=== PATIENT | male | born 1980 | race American Indian/Alaskan Native ===

== ENCOUNTER 2019-05-23 11:26 | Observation (INO) | payer OTHER ==
[2019-05-22 09:57] LABS: Basophils # (Auto) 0.1 K/mm3 (0.0-0.1); Basophils % (Auto) 2.4 % (0.0-1.8); Eosinophils # (Auto) 0.1 K/mm3 (0.0-0.4); Hematocrit 44.6 % (35.5-45.6); Hemoglobin 15.3 gm/dl (11.8-15.2); Lymphocytes # (Auto) 1.1 K/mm3 (1.2-5.4); Lymphocytes % (Auto) 30.5 % (13.4-35.0); Mean Corpuscular HGB Conc 34 % (32-34); Mean Corpuscular Volume 96 fl (84-94); Monocytes # (Auto) 0.2 K/mm3 (0.0-0.8); Monocytes % (Auto) 6.3 % (0.0-7.3); Platelet Count 217 K/mm3 (140-440); Red Blood Count 4.66 M/mm3 (3.65-5.03); Red Cell Distribution Width 12.8 % (13.2-15.2)
--- NOTE | 2019-05-22 10:13 | Anesthesia Consultation ---
Anesthesia Consult and Med Hx Date of service: 05/22/19 - Airway Anesthetic Teeth Evaluation: Good ROM Head & Neck: Adequate Mental/Hyoid Distance: Adequate Mallampati Class: Class II Intubation Access Assessment: Good - Pulmonary Exam CTA: Yes - Cardiac Exam Cardiac Exam: RRR - Pre-Operative Health Status ASA Pre-Surgery Classification: ASA2 Proposed Anesthetic Plan: General (ex smoker quit a year ago ) - Pulmonary Hx Smoking: Yes (STOPPED X 1 YR) Hx Sleep Apnea: No (COREY PRE SCREEN LOW RISK) - Cardiovascular System Hx Hypertension: No - Other Systems Hx Cancer: No
[2019-05-22 10:18] LABS: Alanine Aminotransferase 17 units/L (7-56); Albumin 4.7 g/dL (3.9-5); BUN/Creatinine Ratio 11; Blood Urea Nitrogen 13 mg/dL (9-20); Calcium 9.3 mg/dL (8.4-10.2); Hemolysis Index 10
[~2019-05-23 11:26] MED LIST: GENTAMICIN/NS 80 MG/100 ML 100 ML IV SCH; MIDAZOLAM 2 MG/2 ML INJ IV NR; VANCOMYCIN/NS 1 GM/250 ML 1 GM/250 ML BAG IV SCH
[2019-05-23] MEDS: LACTATED RINGERS 1,000 ML IV SCH (11:55)
[2019-05-23] MEDS ORDERED: fentaNYL 100 MCG/2 ML INJ IV PRN (12:12)
[2019-05-23] MEDS ORDERED: ONDANSETRON 4 MG/2 ML INJ IV PRN ×2 (12:12→14:57)
--- NOTE | 2019-05-23 12:16 | Anesthesia Day of Surgery ---
Anesthesia Day of Surgery - Day of Surgery Patient Examined: Yes Patient H&P Reviewed: Yes Patient is NPO: Yes
[2019-05-23] MEDS ORDERED: MAGNESIUM OXIDE 400 MG TAB PO NR (12:17)
[2019-05-23] MEDS ORDERED: ACETAMINOPHEN 500 MG TAB PO ONE (12:17)
[2019-05-23] MEDS ORDERED: BUPIVACAINE/PF (0.5%) 5 MG/1 ML 30 ML VIAL INFILTRATI ONE (12:36)
[2019-05-23] MEDS ORDERED: SODIUM CHLORIDE 0.9% 250ML 250 ML ONE (12:37)
[2019-05-23] MEDS ORDERED: SODIUM CHLORIDE P/F VIAL 10 ML 10 ML ONE (12:37)
[2019-05-23] MEDS ORDERED: GENTAMICIN 40 MG/ML VIAL 2 ML ONE (12:37)
[2019-05-23] MEDS ORDERED: rifAMPin 600 MG VIAL ONE (12:37)
[2019-05-23] MEDS ORDERED: NEOMY 40 MG/POLYMYXIN B 200,000 UNITS/ML (GU) AMPULE IR ONE ×2 (12:46→14:25)
[2019-05-23] MEDS ORDERED: GABAPENTIN 300 MG CAP PO NR (13:00)
[2019-05-23] MEDS ORDERED: HYDROmorphone 1 MG/1 ML INJ ONE (13:31)
[2019-05-23] MEDS ORDERED: PROPOFOL 200 MG/20 ML VIAL IV ONE (13:31)
[2019-05-23] MEDS ORDERED: LIDOCAINE MPF (2%) 20 MG/1 ML VIAL 5 ML ONE (13:31)
[2019-05-23] MEDS ORDERED: rifAMPin 600 MG VIAL IV ONE (14:22)
[2019-05-23] MEDS ORDERED: GENTAMICIN 40 MG/ML VIAL 2 ML IV ONE (14:22)
[2019-05-23] MEDS ORDERED: SODIUM CHLORIDE 0.9% IRR 1,500 ML BOTTLE IR ONE (14:25)
[2019-05-23] MEDS ORDERED: SODIUM CHLORIDE 0.9% 250 ML IVPB IV ONE (14:25)
[2019-05-23] MEDS ORDERED: NALOXONE 0.4 MG/1 ML INJ IV PRN (14:57)
--- NOTE | 2019-05-23 14:57 | Short Stay Summary ---
Short Stay Documentation Date of service: 05/23/19 - History H&P: obtained from office - Allergies and Medications Current Medications: Allergies Sulfa (Sulfonamide Antibiotics) Adverse Reaction (Verified 05/23/19 12:52) Unknown PT HAS G6PD DEFICIENCY - CANNOT TAKE SULFA DRUGS Home Medications Medication Instructions Recorded Confirmed Last Taken Type No Known Home Medications [No 05/15/19 05/15/19 Unknown History Reported Home Medications] Active Medications Fentanyl (Sublimaze) 50 mcg IV Q5MIN PRN PRN Reason: Pain , Severe (7-10) Stop: 05/23/19 23:59 Gabapentin (Gabapentin) 600 mg PO PREOP NR Stop: 05/24/19 23:59 Last Admin: 05/23/19 12:43 Dose: 600 mg Documented by: Gentamicin Sulfate/Sodium Chloride (Gentamicin/Ns 80 Mg/100 Ml) 100 mls @ 200 mls/hr IV PREOP IRA Stop: 05/23/19 23:00 Vancomycin HCl (Vancomycin/Ns 1 Gm/250 Ml) 1 gm in 250 mls @ 166.667 mls/hr IV PREOP IRA; Protocol Stop: 05/23/19 23:00 Last Admin: 05/23/19 12:45 Dose: 166.667 mls/hr Documented by: Lactated Ringer's (Lactated Ringers) 1,000 mls @ 100 mls/hr IV DIRECT IRA Last Admin: 05/23/19 11:55 Dose: 100 mls/hr Documented by: Magnesium Oxide (Mag-Ox) 400 mg PO PREOP NR Stop: 05/23/19 23:59 Last Admin: 05/23/19 12:43 Dose: 400 mg Documented by: Midazolam HCl (Versed) 2 mg IV PREOP NR Stop: 05/23/19 23:59 Last Admin: 05/23/19 11:58 Dose: 2 mg Documented by: Ondansetron HCl (Zofran) 4 mg IV ONCE PRN PRN Reason: Nausea And Vomiting - Brief post op/procedure progress note Date of procedure: 05/23/19 Pre-op diagnosis: impotence Post-op diagnosis: same Procedure: ipp (22cm Titan + 2cm RTE) Anesthesia: GETA Surgeon: ONEIDA CABRERA Estimated blood loss: minimal Pathology: list (scrotal skin) Specimen disposition: to lab Condition: stable - Hospital course Hospital course: pt has abx & pain pills - Disposition Condition at discharge: Stable Disposition: DC-01 TO HOME OR SELFCARE Short Stay Discharge Plan Follow up with: TL SEO MD [Primary Care Provider] - 7 Days
[2019-05-23] MEDS ORDERED: SODIUM CHLORIDE 0.45% 1000 ML 1,000 ML IV SCH (15:00)
[2019-05-23] MEDS ORDERED: LACTATED RINGERS 1,000 ML ONE ×2 (15:05→16:20)
[2019-05-23] MEDS ORDERED: KETOROLAC 30 MG/1 ML INJ ONE (15:06)
[2019-05-23] MEDS ORDERED: MEPERIDINE 25 MG/1 ML INJ ONE (15:18)
--- NOTE | 2019-05-23 15:23 | Operative Report ---
PREOPERATIVE DIAGNOSIS: Erectile dysfunction. POSTOPERATIVE DIAGNOSIS: Erectile dysfunction. PROCEDURE: Insertion of inflatable penile prosthesis, intracorporal penile injection of pharmacologic agent, scrotoplasty. SURGEON: Abelardo Maurice MD ROLL PICKER: Dian Payan. ANESTHESIA: General. ESTIMATED BLOOD LOSS: Minimal. FLUIDS: Crystalloid. COMPLICATIONS: No complications. INDICATIONS: This is a 39-year-old gentleman with history of erectile dysfunction secondary to his spine surgery in 2017. He actually has had worsening erectile dysfunction since 2016. Conservative therapy was not working anymore. We discussed options. He wants to proceed with surgical intervention. Risks, benefits, and complications were explained. DESCRIPTION OF PROCEDURE: The patient was taken to the operative suite, placed in a supine position. After adequate general anesthesia, he was prepped and draped in a sterile fashion. Dian Payan, who was the nursing surgical services director, was present at the bedside throughout the procedure to assist with surgical dissection. Simpson catheter was placed on the operative field, 60 mL of 0.25% Marcaine was injected into the shaft. No curvature or plaque could be appreciated. Trans-scrotal incision was made. Sharp dissection was taken down to the corporal bodies, 2-0 Vicryl stay sutures were placed. Metal Mayer retractor was used for exposure. Corporotomies were made bilaterally, gentle dilation was performed. Measurements revealed a total of 24 cm; therefore, a 22 cm Coloplast Titan inflatable penile prosthesis was placed with 2 cm rear tip extenders. A 125 mL reservoir was prepped and placed in the retropubic space via the right external ring, 125 mL saline was placed in the reservoir. The cylinders were prepped and placed in the corporal bodies with the aid of a Dominic needle. Adequate seating could be appreciated. Corporotomies were closed with 2-0 Vicryl in a running fashion. The cylinders were inflated, with an excellent cosmetic appearance. Total length of 16 cm, stretch length from the pubic symphysis to the tip of the penis. Copious irrigation was performed. Adequate hemostasis achieved. Using a quick click connection system, the reservoir was connected to the pump. The pump was placed in the dependent portion of the scrotum, secured with a 2-0 Vicryl pursestring suture. Dartos layer was closed with 2-0 Vicryl in a running fashion. Redundant scrotal skin was excised. Skin was then closed with 2-0 Vicryl in interrupted fashion. Xeroform gauze was placed as well as a mummy wrap. The patient tolerated the procedure well and was extubated and taken to recovery room. He will be observed overnight and go home tomorrow. JOB# [id number] [facility]
[2019-05-23] MEDS ORDERED: fentaNYL 100 MCG/2 ML INJ ONE (15:48)
--- NOTE | 2019-05-23 15:51 | Post Anesthesia Evaluation ---
- Post Anesthesia Evaluation Patient Participated: Yes Airway Patent: Yes Stable Respiratory Function: Yes Nausea/Vomiting: No Temp > 96.8F: Yes Pain Manageable: Yes Adequeate Hydration: Yes Anesthesia Complications: Yes Block Receding Appropriately: Not Applicable Patient on Ventilator: No
[2019-05-23] MEDS ORDERED: SODIUM CHLORIDE 0.45% 1000 ML 1,000 ML IV ONE (16:09)
[2019-05-23] MEDS: ceFAZolin/NS 1 GM/50 ML 1 GM/50 ML BAG IV SCH (17:50)
[2019-05-23] MEDS: HYDROcodone/ACETAMINOPHEN 5-325 MG TAB PO PRN (21:03)
[2019-05-24] MEDS: MORPHINE 2 MG/1 ML INJ IV PRN ×3 (00:11→11:02)
[2019-05-24] MEDS: ceFAZolin/NS 1 GM/50 ML 1 GM/50 ML BAG IV SCH (01:35)
[2019-05-24] MEDS: LACTATED RINGERS 1,000 ML IV SCH (03:21)
[2019-05-24] MEDS: HYDROcodone/ACETAMINOPHEN 5-325 MG TAB PO PRN ×2 (09:23→18:11)
--- NOTE | 2019-05-24 16:19 | Progress Note ---
Assessment and Plan mod tenderness no sig eccymosis ileana d/c ed wrap off Subjective Date of service: 05/24/19 Principal diagnosis: ed Objective - Constitutional Vitals: Vital Signs - 12hr 05/24/19 05/24/19 05/24/19 04:27 07:31 12:52 Temperature 98.0 F 98.7 F 98.2 F Pulse Rate 72 74 76 Respiratory 17 18 18 Rate Blood Pressure 114/69 105/62 110/66 O2 Sat by Pulse 96 98 98 Oximetry General appearance: Present: other - Neck Neck: supple - Respiratory Respiratory effort: normal Extremities: no ischemia - Gastrointestinal General gastrointestinal: Present: soft - Genitourinary Male genitourinary: tender - Labs CBC & Chem 7: 05/22/19 09:30 05/22/19 09:30 Medications & Allergies - Medications Allergies/Adverse Reactions: Allergies Sulfa (Sulfonamide Antibiotics) Adverse Reaction (Verified 05/23/19 12:52) Unknown PT HAS G6PD DEFICIENCY - CANNOT TAKE SULFA DRUGS Home Medications: Home Medications Medication Instructions Recorded Confirmed Last Taken Type No Known Home Medications [No 05/15/19 05/15/19 Unknown History Reported Home Medications] Active Medications: Generic Name Dose Route Start Last Admin Trade Name Freq PRN Reason Stop Dose Admin Acetaminophen/Hydrocodone Bitart 2 each 05/23/19 14:57 05/24/19 09:23 [place] 5/325 PO 2 each Q6H PRN Administration Pain, Moderate (4-6) Gabapentin 600 mg 05/23/19 13:00 05/23/19 12:43 Gabapentin PO 05/24/19 23:59 600 mg PREOP NR Administration Lactated Ringer's 1,000 mls @ 100 mls/hr 05/22/19 11:00 05/24/19 03:21 Lactated Ringers IV 100 mls/hr DIRECT IRA Administration Sodium Chloride 1,000 mls @ 125 mls/hr 05/23/19 15:00 Nacl 0.45% 1000 Ml IV DIRECT IRA Morphine Sulfate 2 mg 05/23/19 14:57 05/24/19 11:02 Morphine IV 2 mg Q4H PRN Administration Pain, Moderate (4-6) Naloxone HCl 0.1 mg 05/23/19 14:57 Naloxone IV Q2MIN PRN Res Rate </= 8 or 02 SAT < 92% Ondansetron HCl 4 mg 05/23/19 12:12 Zofran IV ONCE PRN Nausea And Vomiting Ondansetron HCl 4 mg 05/23/19 14:57 Zofran IV Q8H PRN N/V unrelieved by Osmin
--- NOTE | 2019-05-24 16:20 | Discharge Summary ---
Short Stay Discharge Plan Activity: other (no straining or lifting ) Weight Bearing Status: Full Weight Bearing Diet: regular Special Instructions: other (icwe packs ) Follow up with: TL SEO MD [Primary Care Provider] - 7 Days ONEIDA CABRERA MD [Staff Physician] - 7 Days
[2019-05-24 17:04] VITALS: BP 98/45
== END 2019-05-24 19:00 | disposition home or self-care (01) ==
LOC: OR 11:26 → 3B-SURG 14:57
PROVIDERS: ADMIT Urology; ATTEND Urology
DX: N52.9 Male erectile dysfunction, unspecified (principal); I10 Essential (primary) hypertension; Z87.891 Personal history of nicotine dependence; Z71.3 Dietary counseling and surveillance; Z79.899 Other long term (current) drug therapy; Z88.2 Allergy status to sulfonamides
CPT/HCPCS: 36415; 54401; 55175; 80053; 85025; 88302; 96365; 96366; 96367; 96375; 96376; C1813; G0378; J0690; J1170; J1580; J1885; J2175; J2250; J2270; J2405; J2704; J3010; J3370; J3490; J7030; J7050; J7120; 88305